=== PATIENT | female | born 1950 | race Native Hawaiian/Other Pacific Islander ===

== ENCOUNTER 2019-01-28 13:13 | Emergency (ER) | payer MEDICARE, MEDICAID ==
[2019-01-28] MEDS ORDERED: Sodium Chloride 0.9% 1,000 ML IV ONE (14:02)
[2019-01-28] MEDS ORDERED: Sodium Chloride 0.9% 1,000 ML ONE (14:13)
[2019-01-28 14:27] LABS: BASO # 0.1 K/uL (0.0-0.2); BASO % 0.9 % (0.0-2.0); EOS # 0.1 K/uL (0.0-0.7); EOS % 0.8 % (0.0-4.0); HEMOGLOBIN 16.2 g/dL (11.0-16.0); LYMPH # 1.2 K/uL (1.0-4.3); LYMPH % 13.7 % (20.0-40.0); MEAN CELL VOLUME 92.7 fL (81.0-99.0); MEAN CORPUSCULAR HEMOGLOBIN 31.4 pg (27.0-31.0); MEAN CORPUSCULAR HGB CONC 33.9 g/dL (33.0-37.0); MEAN PLATELET VOLUME 7.8 fL (7.2-11.7); MONO # 0.6 K/uL (0.0-0.8); MONO % 7.2 % (0.0-10.0); NEUT # 6.8 K/uL (1.8-7.0); NEUT % 77.4 % (50.0-75.0); NRBC % 0.2 % (0.0-2.0); RBC 5.17 Mil/uL (3.80-5.20); RED CELL DISTRIBUTION WIDTH 13.1 % (11.5-14.5); WHITE BLOOD COUNT 8.8 K/uL (4.8-10.8)
[2019-01-28 14:36] LABS: ALB/GLOB RATIO 1.4 (1.0-2.1); ALBUMIN 4.5 g/dL (3.5-5.0); ALT/SGPT 10 U/L (9-52); AST/SGOT 26 U/L (14-36); BLOOD UREA NITROGEN 22 mg/dL (7-17); CALCIUM 9.4 mg/dl (8.6-10.4); GFR NON-AFRICAN AMERICAN 55
[2019-01-28 14:38] LABS: SQUAMOUS EPITHIAL 1 /hpf (0-5); URINE BILIRUBIN NEGATIVE (NEGATIVE); URINE BLOOD NEGATIVE (NEGATIVE); URINE CLARITY Hazy (Clear); URINE COLOR Yellow (YELLOW); URINE GLUCOSE (UA) 3+ mg/dL (Normal); URINE LEUKOCYTE ESTERASE NEG Leu/uL (Negative); URINE PROTEIN 3+ mg/dL (NEGATIVE); URINE UROBILINOGEN NORMAL mg/dL (0.2-1.0)
--- NOTE | 2019-01-28 14:38 | C.PDOC ---
History Of Present Illness 68 year old female presents to the emergency department with complaints of dizziness for the last one week which has worsened over the past weekend. Patient reports a spinning sensation upon moving her head, followed by epigastric discomfort with reflux and chest pain which leads to vomiting. Patient states that her pain resolves after vomiting, she denies visual disturbance, headache. Patient states that she has these symptoms on an episodic basis once per month. Patient denies seeing her PMD or taking medications. Time Seen by Provider: 01/28/19 13:48 Chief Complaint (Nursing): Chest Pain History Per: Patient History/Exam Limitations: no limitations Onset/Duration Of Symptoms: Days Current Symptoms Are (Timing): Still Present Quality: "Pain", Other (spinning) Associated Symptoms: Other (dizziness, epigastric discomfort, reflux, chest pain, vomiting, abdominal pain) Exacerbating Factors: Movement (head) Past Medical History Reviewed: Historical Data, Nursing Documentation, Vital Signs Vital Signs: Last Vital Signs Temp 97.8 F 01/28/19 13:31 Pulse 66 01/28/19 13:31 Resp 18 01/28/19 13:31 BP 191/91 H 01/28/19 13:31 Pulse Ox 99 01/28/19 13:31 - Medical History PMH: Diabetes, HTN Surgical History: No Surg Hx Family History: States: No Known Family Hx - Social History Hx Tobacco Use: No Hx Alcohol Use: No Hx Substance Use: No - Immunization History Hx Tetanus Toxoid Vaccination: No Hx Influenza Vaccination: Yes Hx Pneumococcal Vaccination: No Review Of Systems Constitutional: Negative for: Fever, Chills Eyes: Negative for: Vision Change Cardiovascular: Positive for: Chest Pain Gastrointestinal: Positive for: Vomiting, Abdominal Pain, Other (reflux) Neurological: Positive for: Dizziness. Negative for: Headache Physical Exam - Physical Exam Appears: Non-toxic, No Acute Distress Skin: Normal Color, Warm, Dry Head: Atraumatic, Normacephalic Eye(s): bilateral: Normal Inspection, PERRL, EOMI Nose: Normal Oral Mucosa: Moist Neck: Normal, Supple Chest: Symmetrical, No Tenderness Cardiovascular: Rhythm Regular, No Murmur Respiratory: Normal Breath Sounds, No Rales, No Rhonchi, No Wheezing Gastrointestinal/Abdominal: Soft, No Tenderness, No Guarding, No Rebound Extremity: Normal ROM Neurological/Psych: Oriented x3, Normal Speech, Normal Cognition ED Course And Treatment - Laboratory Results Result Diagrams: 01/28/19 14:23 01/28/19 14:23 Lab Interpretation: Abnormal (BUN 22, Glucose 268) ECG: Interpreted By Me, Viewed By Me ECG Rhythm: Sinus Rhythm ECG Interpretation: Normal Rate From EC O2 Sat by Pulse Oximetry: 99 (RA) Pulse Ox Interpretation: Normal - CT Scan/US Head Other Rad Studies (CT/US): Read By Radiologist, Radiology Report Reviewed CT/US Interpretation: Accession No. : [id number]. Patient Name / ID : TARA SQUIRES / [id number]. Exam Date : 01/28/2019 15:15:59 ( Approved ). Study Comment : Sex / Age : F / 68Y. Creator : Joanna Lunsford. Dictator : Li Rhodes. Yacht Builder : Pay Per Click Strategist : Li Rhodes. Approver2 : Report Date : 01/28/2019 15:21:11. My Comment : . Date of service: 01/28/2019. PROCEDURE: CT HEAD WITHOUT CONTRAST. HISTORY: R/O Bleed. COMPARISON: 11/02/2014. TECHNIQUE: Axial computed tomography images were obtained through the head/brain without intravenous contrast. Radiation dose: Total exam DLP = 1043.05 mGy-cm. This CT exam was performed using one or more of the following dose reduction techniques: Automated exposure control, adjustment of the mA and/or kV according to patient size, and/or use of iterative reconstruction technique. FINDINGS: HEMORRHAGE: No intracranial hemorrhage. BRAIN: No mass effect or edema. There is patchy deep white matter of the centrum semiovale regions on axis series 4, image 38 and 39 appreciated on the prior studies as such. Interval progressive microvascular ischemic changes are compatible with this. Atrophy is noted. VENTRICLES: Unremarkable. No hydrocephalus. CALVARIUM: Unremarkable. PARANASAL SINUSES: Unremarkable as visualized. No significant inflammatory changes. MASTOID AIR CELLS: Patchy sclerotic changes of each mastoid tip noted. No lytic changes. OTHER FINDINGS: Atherosclerotic vascular calcifications vertebrobasilar and supraclinoid internal carotid arteries. IMPRESSION: No interval hemorrhage or mass effect. Since 2014 interval progressive cerebral atrophy and interval progressive patchy bilateral centrum semiovale white matter hypodensities compatible with interval vascular ischemic changes. No associated edema here or mass effect noted. Other findings as above. Reevaluation Time: 16:30 Reassessment Condition: Improved Medical Decision Making Medical Decision Making: Plan: CT Head EKG CMP Magnesium CBC Antivert 25mg PO NaCl IV Fluids Zofran 4mg IVP Urinalysis Disposition Counseled Patient/Family Regarding: Studies Performed, Diagnosis, Need For Followup, Rx Given - Disposition Referrals: Julissa Ceja MD [Medical Doctor] - Disposition: HOME/ ROUTINE Disposition Time: 16:33 Condition: IMPROVED Prescriptions: Meclizine HCl 25 mg PO TID PRN #30 tablet PRN Reason: Dizziness Ondansetron ODT [Zofran ODT] 1 odt PO QID PRN #10 odt PRN Reason: Nausea/Vomiting Instructions: Vertigo (a Type of Dizziness) Forms: [facility] (K[place]gyz) - Clinical Impression Clinical Impression: Vertigo - Scribe Statement The provider has reviewed the documentation as recorded by the Scribe (Charbel Morfin) Provider Attestation: All medical record entries made by the Scribe were at my direction and personally dictated by me. I have reviewed the chart and agree that the record accurately reflects my personal performance of the history, physical exam, medical decision making, and the department course for this patient. I have also personally directed, reviewed, and agree with the discharge instructions and disposition.
[2019-01-28 15:44] VITALS: BP 166/69; PULSE 89; RESP 20; TEMP 98.1
--- NOTE | 2019-01-28 15:47 | CT ---
Date of service: 01/28/2019 PROCEDURE: CT HEAD WITHOUT CONTRAST. HISTORY: R/O Bleed COMPARISON: 11/02/2014 TECHNIQUE: Axial computed tomography images were obtained through the head/brain without intravenous contrast. Radiation dose: Total exam DLP = 1043.05 mGy-cm. This CT exam was performed using one or more of the following dose reduction techniques: Automated exposure control, adjustment of the mA and/or kV according to patient size, and/or use of iterative reconstruction technique. FINDINGS: HEMORRHAGE: No intracranial hemorrhage. BRAIN: No mass effect or edema. There is patchy deep white matter of the centrum semiovale regions on axis series 4, image 38 and 39 appreciated on the prior studies as such. Interval progressive microvascular ischemic changes are compatible with this. Atrophy is noted. VENTRICLES: Unremarkable. No hydrocephalus. CALVARIUM: Unremarkable. PARANASAL SINUSES: Unremarkable as visualized. No significant inflammatory changes. MASTOID AIR CELLS: Patchy sclerotic changes of each mastoid tip noted No lytic changes. OTHER FINDINGS: Atherosclerotic vascular calcifications vertebrobasilar and supraclinoid internal carotid arteries. IMPRESSION: No interval hemorrhage or mass effect. Since 2013 interval progressive cerebral atrophy and interval progressive patchy bilateral centrum semiovale white matter hypodensities compatible with interval vascular ischemic changes. No associated edema here or mass effect noted. Other findings as above.
[2019-01-28 16:30] VITALS: O2SAT 99
--- NOTE | 2019-01-29 15:28 | CARD ---
APPROVED REPORT Date of service: 01/28/2019 EKG Measurement Heart [id number] <Conclusion> Normal sinus rhythm Normal ECG
== END 2019-01-28 16:40 | disposition home or self-care (01) ==
LOC: C.ER 13:13
DX: R42 Dizziness and giddiness (principal); E11.9 Type 2 diabetes mellitus without complications; I10 Essential (primary) hypertension
CPT/HCPCS: 70450; 80053; 81001; 83735; 85025; 93005; 96361; 96374; 99285; J2405; J7030